=== PATIENT | male | born 1970 | race American Indian/Alaskan Native ===

== ENCOUNTER 2017-04-04 11:48 | Emergency (ER) | payer MEDICAID ==
[2017-04-04 12:05] VITALS: BP 129/73; PULSE 66; RESP 18; TEMP 97.5; O2SAT 97
--- NOTE | 2017-04-04 14:04 | C.PDOC ---
History Of Present Illness 46-year-old male, presents to the emergency department with complaints of blisters to soles of bilateral feet from walking too much. Patient is homeless and asking for food. Denies nausea/vomiting, SI/HI, numbness/weakness, or any other associated symptoms. No other complaints at this time. Time Seen by Provider: 04/04/17 13:19 Chief Complaint (Nursing): Lower Extremity Problem/Injury History Per: Patient, EMS History/Exam Limitations: no limitations Onset/Duration Of Symptoms: Days Current Symptoms Are (Timing): Still Present Severity: Moderate Past Medical History Reviewed: Historical Data, Nursing Documentation, Vital Signs Vital Signs: Last Vital Signs Temp 97.5 F L 04/04/17 12:04 Pulse 66 04/04/17 12:04 Resp 18 04/04/17 12:04 BP 129/73 04/04/17 12:04 Pulse Ox 97 04/04/17 14:28 - Medical History PMH: No Chronic Diseases Family History: States: No Known Family Hx - Social History Hx Alcohol Use: Yes Hx Substance Use: Yes Review Of Systems Except As Marked, All Systems Reviewed And Found Negative. Constitutional: Negative for: Fever, Chills Cardiovascular: Negative for: Chest Pain, Palpitations Respiratory: Negative for: Cough, Shortness of Breath Musculoskeletal: Positive for: Foot Pain Skin: Negative for: Rash Neurological: Negative for: Weakness, Numbness, Headache, Dizziness Physical Exam - Physical Exam Appears: Non-toxic, No Acute Distress Skin: Warm, Dry, No Rash Head: Atraumatic, Normacephalic Eye(s): bilateral: Normal Inspection Nose: Normal Oral Mucosa: Moist Lips: Normal Appearing Neck: Normal ROM, Supple Cardiovascular: Rhythm Regular Respiratory: Normal Breath Sounds, No Accessory Muscle Use, No Rales, No Rhonchi , No Wheezing Gastrointestinal/Abdominal: Soft, No Tenderness Extremity: Normal ROM, Other (B/L feet with blisters. No evidence of cellulitis , fluctuance or induration) Neurological/Psych: Oriented x3, Normal Speech, Normal Motor, Normal Sensation Gait: Steady ED Course And Treatment O2 Sat by Pulse Oximetry: 97 (on RA) Pulse Ox Interpretation: Normal Medical Decision Making Medical Decision Making: The patient is requesting antibiotics as he thinks there is an infection but there is no warmth, swelling or erythema. Disposition - Disposition Referrals: [facility] [Outside] Disposition: HOME/ ROUTINE Disposition Time: 14:03 Condition: GOOD Additional Instructions: Follow up with the medical doctor within 1-2 days. Return if worsened. Prescriptions: Cephalexin [cephalexin] 500 mg PO BID #14 cap Ibuprofen [Motrin] 600 mg PO TID #21 tab Instructions: Blister (ED) - Clinical Impression Clinical Impression: Blister - PA / LEASE EXAMINER / Resident Statement MD/DO has reviewed & agrees with the documentation as recorded. - Scribe Statement The provider has reviewed the documentation as recorded by the Scribe (Stewart Turcios) All medical record entries made by the Scribe were at my direction and personally dictated by me. I have reviewed the chart and agree that the record accurately reflects my personal performance of the history, physical exam, medical decision making, and the department course for this patient. I have also personally directed, reviewed, and agree with the discharge instructions and disposition.
== END 2017-04-04 14:22 | disposition home or self-care (01) ==
LOC: C.ER 11:48
DX: S90.822A Blister (nonthermal), left foot, initial encounter (principal); S90.821A Blister (nonthermal), right foot, initial encounter; X58.XXXA Exposure to other specified factors, initial encounter; Y93.01 Activity, walking, marching and hiking; Y92.9 Unspecified place or not applicable